=== PATIENT | female | born 1940 | race Caucasian/White ===

== ENCOUNTER 2016-07-26 10:46 | Outpatient (CLI) | payer MEDICARE, BC ==
[2015-10-02 07:52] VITALS: O2SAT 95
== END 2016-07-26 10:47 | disposition home or self-care (01) | DRG 561 ==
LOC: CONVCARE 10:46
PROVIDERS: ATTEND Orthopaedic Surgery
DX: S82.142D Displaced bicondylar fracture of left tibia, subsequent encounter for closed fracture with routine healing (principal)
CPT/HCPCS: 73564

== ENCOUNTER 2017-05-03 08:44 | Outpatient (CLI) | payer MEDICARE, BC ==
[2015-10-02 07:52] VITALS: O2SAT 95
== END 2017-05-03 08:45 | disposition home or self-care (01) | DRG 554 ==
LOC: CONVCARE 08:44
PROVIDERS: ATTEND Orthopaedic Surgery
DX: M17.12 Unilateral primary osteoarthritis, left knee (principal); M21.062 Valgus deformity, not elsewhere classified, left knee
CPT/HCPCS: 73564

== ENCOUNTER 2018-08-11 07:57 | Day surgery (SDC) | payer MEDICARE, BC ==
[2018-08-11] MEDS ORDERED: LIDOCAINE HCL 1% MPF 30 SOL ONE (08:07)
[2018-08-11] MEDS ORDERED: PROPOFOL 500 MG/50 ML EMU IV ONE (08:07)
[2018-08-11 11:34] VITALS: BP 144/83; PULSE 66; RESP 18; TEMP 97.4; O2SAT 98
== END 2018-08-11 12:30 | disposition home or self-care (01) | DRG 951 ==
LOC: SURG 07:57
PROVIDERS: ATTEND Surgery
DX: Z12.11 Encounter for screening for malignant neoplasm of colon (principal); D64.9 Anemia, unspecified; R10.13 Epigastric pain; K57.30 Diverticulosis of large intestine without perforation or abscess without bleeding
CPT/HCPCS: J2001; J2704